=== PATIENT | female | born 1985 | race Caucasian/White ===

== ENCOUNTER 2017-12-29 21:24 | Emergency (ER) | payer OTHER ==
[~2017-12-29] VITALS: Ht 165.1 cm; Wt 108.9 kg
--- NOTE | 2017-12-29 21:52 | NUR ---
PT TO ER BED 7. PT BIBRA C/O WEAKNESS AFTER EATING A "WEED COOKIE". PT PLACED IN GOWN AND ON HOSPITAL EDUCATION COORDINATOR. VSS/RESP EVEN UNLABORED/NAD NOTED/SKIN WARM AND DRY/DENIES N-V-D/AFEBRILE/AOX4. AWAITING MD ARIAS.
--- NOTE | 2017-12-29 23:16 | NUR ---
AT BEDSIDE SPEAKING WITH THE PT.
--- NOTE | 2017-12-29 23:29 | NUR ---
Patient discharged to home in stable condition. Written and verbal after care instructions given. Patient verbalizes understanding of instruction. Patient ambulatory with a steady gait.
[2017-12-29 23:30] VITALS: BP 115/66
== END 2017-12-29 23:32 | disposition home or self-care (01) ==
LOC: ER 21:25
DX: F41.9 Anxiety disorder, unspecified (principal); J45.909 Unspecified asthma, uncomplicated; F12.10 Cannabis abuse, uncomplicated
CPT/HCPCS: 80305; 84703; 99284; A4606 ×2; Z7610 ×2